=== PATIENT | female | born 1980 | race Caucasian/White ===

== ENCOUNTER 2024-12-17 14:38 | Outpatient (CLI) | payer OTHER, SELFPAY | END 2024-12-17 14:39 | disposition home or self-care (01) | LOC: NFLDREF 12-22 19:10 | PROVIDERS: Visit Provider Family Medicine | DX: Z85.71 Personal history of Hodgkin lymphoma (principal); Z86.39 Personal history of other endocrine, nutritional and metabolic disease | CPT/HCPCS: 80053; 82306; 83615; 84443; 84481 ==